=== PATIENT | male | born 1990 | race Caucasian/White ===

== ENCOUNTER 2018-01-22 20:03 | Inpatient (IN) | payer OTHER ==
[~2018-01-22] VITALS: Ht 167.6 cm; Wt 89.4 kg
[2018-01-22] MEDS ORDERED: ONDANSETRON INJ 2 MG/ML 2 ML VIAL IV STA (20:30)
[2018-01-22] MEDS ORDERED: HYDROmorphone INJ 1 MG/ML SYR IV STA (20:30)
[2018-01-22] MEDS ORDERED: KETOROLAC TROMETHAMINE 30 MG/ML VIAL IV STA (20:30)
[2018-01-22] MEDS ORDERED: AMPICILLIN/SULBACTAM SOD INJ 3,000 MG in SODIUM CHLORIDE 0.9% 100ML 100 ML IV ONE (20:30)
[2018-01-22] MEDS ORDERED: IBUP-103 PO (20:36)
[2018-01-22] MEDS ORDERED: ACET-1256 PO (20:36)
[2018-01-22] MEDS ORDERED: OPTIRAY 320 IV PRN (20:45)
[2018-01-22] MEDS ORDERED: SODIUM CHLORIDE 0.9% 1000ML 1,000 ML IV STA (22:26)
--- NOTE | 2018-01-22 22:28 | EMERGENCY ROOM VISIT NOTE ---
History Report prepared by Brett: Katie Douglas Under the Supervision of: Dr. Cortez Nava M.D. First contact with patient: 20:20 Chief Complaint: FACIAL PAIN/INJURY Stated Complaint: SWOLLEN FACE History of Present Illness The patient is a 27 year old male who presents to the Emergency Room with complaints of worsening facial pain starting two days ago. The patient states that he passed out while on the toilet, fell forward, and hit his face into a garbage can. He states that when he woke up yesterday morning, the scratch on his face was still bleeding. He states that he then super glued it himself. He states that he came to the ED because his face is now swollen. He reports that the cut has been oozing. He states that the pain is a 7/10 in severity. He notes that he has a headache. He reports taking Advil here and there with no relief. The patient notes that he is a smoker and denies being a diabetic. Source of History: patient Onset: 2 days ago Position: other (face) Symptom Intensity: 7/10 Quality: other (swollen) Timing: worsening Associated Symptoms: + headache Review of Systems See HPI for pertinent positives & negatives. A total of 10 systems reviewed and were otherwise negative. Past Medical & Surgical Medical Problems: (1) Facial cellulitis (2) No Known Active Medical Problems Family History Patient reports no known family medical history. Social History Smoking Status: Current Every Day Smoker Marital Status: in relationship Housing Status: lives with significant other Occupation Status: employed Current/Historical Medications Scheduled PRN Acetaminophen (Tylenol), 1,000-1,500 MG PO DIRECTED PRN for Pain Ibuprofen Tab (Advil), 600-800 MG PO Q4H PRN for Pain Allergies Coded Allergies: No Known Allergies (Unverified , 01/22/18) Physical Exam Vital Signs Date Time Temp Pulse Resp B/P (MAP) Pulse Ox O2 Delivery O2 Flow Rate FiO2 01/23/18 01:41 95 20 119/69 96 Room Air 01/23/18 00:00 98 16 120/65 95 Room Air 01/22/18 23:13 37.6 108 20 111/57 92 Room Air 01/22/18 22:00 105 20 116/76 98 Room Air 01/22/18 20:16 37.0 125 20 151/89 98 Room Air Physical Exam GENERAL: Patient is a healthy-appearing well-nourished HEAD: Normocephalic, left side of his face is grossly swollen. EYES: Ocular movements intact pupils equal and react to light OROPHARYNX mucous membranes are moist no exudates present no erythema or edema present NECK: Supple no nuchal rigidity CHEST: Good equal expansion LUNGS: Clear and equal to auscultation CARDIAC: Normal S1 and S2 ABDOMEN: Soft nontender no guarding BACK: No CVA tenderness EXTREMITIES: No pain upon palpation normal muscle strength in all groups no clubbing cyanosis or edema NEURO: Patient is following commands and answering questions appropriately. Alert and oriented x3 Cranial Nerves 2-12 grossly intact Medical Decision & Procedures ER Provider Diagnostic Interpretation: Radiology results as stated below per my review and radiologist interpretation: CHEST ONE VIEW PORTABLE CLINICAL HISTORY: Shortness of breath. COMPARISON STUDY: No previous studies for comparison. FINDINGS: Lung volumes are normal. No pneumothorax or pleural effusion is identified. There is no consolidation. Pulmonary vascularity is normal. Cardiomediastinal silhouette is unremarkable. IMPRESSION: No acute cardiopulmonary findings. Electronically signed by: Jamari Randhawa M.D. 01/22/2018 11:16 PM Dictated Date/Time: 01/22/2018 11:[address] NECK: Enlargement, inflammation, edema in the left parotid gland with severe surrounding fluid and subcutaneous edema involving the left maxillary, zygomatic , and mandibular and left neck soft tissues. Findings are compatible with left parotitis significant surrounding inflammatory change. No discrete abscess identified. Fluid tracks inferiorly from the parotid gland along the left neck. Thickening of the left platysma. Patchy groundglass opacities in densities in the visualized upper lobes are concerning for an infectious/inflammatory process. Enlarged left greater than right submandibular, cervical, and submental lymph nodes. Mucosal thickening in the left sphenoid sinus. Mild mucosal thickening in the ethmoid air cells. Mild mucosal thickening in the maxillary sinuses. Radiologist: Ciara Vazquez MD Study ready at 23:20 and inital results transmitted at 23:40. Laboratory Results Test 01/22/18 22:20 01/22/18 22:24 Immature Granulocyte % (Auto) 0.8 % White Blood Count 18.43 K/uL (4.8-10.8) Red Blood Count 4.33 M/uL (4.7-6.1) Hemoglobin 13.4 g/dL (14.0-18.0) Hematocrit 36.6 % (42-52) Mean Corpuscular Volume 84.5 fL (80-100) Mean Corpuscular Hemoglobin 30.9 pg (25-34) Mean Corpuscular Hemoglobin Concent 36.6 g/dl (32-36) Platelet Count 151 K/uL (130-400) Mean Platelet Volume 8.7 fL (7.4-10.4) Neutrophils (%) (Auto) 85.0 % Lymphocytes (%) (Auto) 6.7 % Monocytes (%) (Auto) 7.4 % Eosinophils (%) (Auto) 0.0 % Basophils (%) (Auto) 0.1 % Neutrophils # (Auto) 15.67 K/uL (1.4-6.5) Lymphocytes # (Auto) 1.24 K/uL (1.2-3.4) Monocytes # (Auto) 1.37 K/uL (0.11-0.59) Eosinophils # (Auto) 0.00 K/uL (0-0.5) Basophils # (Auto) 0.01 K/uL (0-0.2) Immature Granulocyte # (Auto) 0.14 K/uL (0.00-0.02) Total Creatine Kinase 97 U/L (39-308) Bedside Hemoglobin 12.9 g/dl (14.0-18.0) Bedside Hematocrit 38 % (42-52) Bedside Sodium 129 mEq/L (135-144) Bedside Potassium 3.8 mEq/L (3.3-5.0) Bedside Chloride 92 mEq/L (101-112) Bedside Total CO2 23 mEq/l (24-31) Bedside Blood Urea Nitrogen 6 mg/dl (7-18) Bedside Creatinine 0.7 mg/dl (0.6-1.3) Bedside Glucose (other) 126 mg/dl (70-99) Bedside Ionized Calcium (Loki) 1.09 mmol/l (1.12-1.32) Labs reviewed by ED physician. Medications Administered Medications (Trade) Dose Ordered Sig/Ciara Route Start Time Stop Time Status Last Admin Dose Admin Ketorolac Tromethamine (Toradol Inj) 30 mg NOW STAT IV 01/22/18 20:30 01/22/18 20:34 DC 01/22/18 20:30 30 MG Ondansetron HCl (Zofran Inj) 4 mg NOW STAT IV 01/22/18 20:30 01/22/18 20:34 DC 01/22/18 20:30 4 MG Hydromorphone HCl (Dilaudid Inj) 1 mg NOW STAT IV 01/22/18 20:30 01/22/18 20:34 DC 01/22/18 20:30 1 MG Ampicillin Sodium/ Sulbactam Sodium 3000 mg/Sodium Chloride 108 ml @ 200 mls/hr ONE ONCE IV 01/22/18 20:30 01/22/18 21:02 DC 01/22/18 20:30 200 MLS/HR Sodium Chloride 1,000 ml @ 999 mls/hr Q1H1M STAT IV 01/22/18 22:26 01/22/18 23:26 DC 01/22/18 22:26 999 MLS/HR Vancomycin HCl (Vancomycin 1gm/ 270ml Nss) 1 gm NOW STAT IV 01/23/18 00:29 01/23/18 00:30 DC 01/23/18 00:56 1 GM Procedure Central Venous Catheter Indication: Access Catheter type: Arrow triple lumen Location: Right Femoral Verbal consent was obtained after the risks and benefits were explained, including but not limited to pneumothorax, hemothorax, vessel injury, bleeding, scarring, infection, pain, and bone/joint/nerve damage. At this time, the risks of the procedure are less than the risks of NOT performing the procedure. A time out was taken and the correct patient and site identified. The patient was placed in the supine position and the skin was prepped in the standard fashion with chlorhexidine and full sterile drapes applied. The proper landmarks were identified with ultrasound, anesthetized with 1% lidocaine without epinephrine, and the needle was inserted through the skin in the standard fashion. The needle was carefully advanced into blood vessel lumen under ultrasound guidance. The guidewire was placed uneventfully. The vessel is dilated and the catheter was placed. It was sutured into position. There was good blood return from all ports. The patient tolerated the procedure well and there were no complications. Post procedure x-ray was normal. ED Course 2021: Past medical records reviewed. The patient was evaluated in room B11B. A complete history and physical examination was performed. 2029: Ordered Ampicillin Sodium/ Sulbactam Sodium 3000 mg/Sodium Chloride 108 ml @ 200 mls/hr IV, Dilaudid Inj 1 mg IV, Zofran Inj 4 mg IV, Toradol Inj 30 mg IV. 2213: I reevaluated the patient and he admitted that he is an addict. He used methamphetamines and heroine a few days ago. He denies injecting into his face and states that he does not have pain when he moves his eyes. At this time I also placed a central line. Please see my procedure note. 2226: Ordered NSS 1000 ml @ 999 mls/hr UV. 0029: Ordered Vancomycin HCl 1 gm IV. 0050: I discussed the patient's case with Dr. Dickerson, he has agreed to evaluate the patient for further management and care. 0054: I reevaluated the patient and updated him and his family on his test results. Medical Decision Differential diagnosis: Etiologies such as cellulitis, abscess, MRSA infection, DVT, necrotizing fasciitis, dermatitis, drug eruption, as well as others were entertained. This is a 27-year-old male IV drug user who presents emergency Department with a large amount of facial cellulitis. Patient tried to glue a laceration to his face several days ago. Nursing staff was unable to obtain an IV and for this reason a central line was placed as above. The patient was started on antibiotics and he was sent for CAT scan of the face. This shows no evidence of abscess. Based on this fact the did discuss the case with the hospitalist service who agreed to admit the patient. Patient and family were in agreement with the treatment plan. The patient was given normal saline bolus 30 mL's per kilogram of fluid in addition did receive Unasyn as well as vancomycin. Medication Reconcilliation Current Medication List: was personally reviewed by me Blood Pressure Screening Patient's blood pressure: Normal blood pressure Blood pressure disposition: Did not require urgent referral Consults Time Called: 004 Consulting Physician: Dr. Dickerson Returned Call: 0050 I discussed the patient's case with Dr. Dickerson, he has agreed to evaluate the patient for further management and care. Impression Primary Impression: Facial cellulitis Critical Care I have personally spent greater than 90 minutes of critical care time in the direct management of this patient. This includes bedside care, interpretation of diagnostic studies, and testing, discussion with consultants, patient, and family members, and other required patient management activities. This 90 minutes is in excess of all separately billable procedures. Scribe Attestation The scribe's documentation has been prepared under my direction and personally reviewed by me in its entirety. I confirm that the note above accurately reflects all work, treatment, procedures, and medical decision making performed by me. Departure Information Dispostion Being Evaluated By Hospitalist Referrals No Doctor, Assigned (PCP) Patient Instructions [facility]
[2018-01-22 22:34] LABS: BASO % 0.1 %; BASO ABS # 0.01 K/uL (0-0.2); HEMATOCRIT 36.6 % (42-52); HEMOGLOBIN 13.4 g/dL (14.0-18.0); IG# 0.14 K/uL (0.00-0.02); LYMPH % 6.7 %; LYMPH ABS # 1.24 K/uL (1.2-3.4); MEAN CELL VOLUME 84.5 fL (80-100); MEAN CORPUSCULAR HEMOGLOBIN 30.9 pg (25-34); MEAN CORPUSCULAR HGB CONC 36.6 g/dl (32-36); MEAN PLATELET VOLUME 8.7 fL (7.4-10.4); MONO % 7.4 %; MONO ABS # 1.37 K/uL (0.11-0.59); NEUT ABS # 15.67 K/uL (1.4-6.5); PLATELET COUNT 151 K/uL (130-400); RED CELL DISTRIBUTION WIDTH CV 13.2 % (11.5-14.5); RED CELL DISTRIBUTION WIDTH SD 40.7 fL (36.4-46.3); WHITE BLOOD COUNT 18.43 K/uL (4.8-10.8)
[2018-01-22 22:38] LABS: ISTAT CREATININE 0.7 mg/dl (0.6-1.3); ISTAT IONIZED CALCIUM 1.09 mmol/l (1.12-1.32); ISTAT POTASSIUM 3.8 mEq/L (3.3-5.0)
[2018-01-22 22:50] LABS: CALCIUM 8.3 mg/dl (8.5-10.1); CREATININE 0.88 mg/dl (0.60-1.40); POTASSIUM 3.7 mmol/L (3.5-5.1)
--- NOTE | 2018-01-22 23:17 | DIAGNOSTIC IMAGING REPORT ---
CHEST ONE VIEW PORTABLE CLINICAL HISTORY: Shortness of breath. COMPARISON STUDY: No previous studies for comparison. FINDINGS: Lung volumes are normal. No pneumothorax or pleural effusion is identified. There is no consolidation. Pulmonary vascularity is normal. Cardiomediastinal silhouette is unremarkable. IMPRESSION: No acute cardiopulmonary findings. Electronically signed by: Jamari Randhawa M.D. 01/22/2018 11:16 PM Dictated Date/Time: 01/22/2018 11:15 PM
[2018-01-23] MEDS ORDERED: VANCOMYCIN 1GM/270ML NSS IV STA (00:29)
--- NOTE | 2018-01-23 02:12 | History and Physical ---
History & Physical Date & Time of Service: Jan 23, 2018 at 02:12 Chief Complaint: Swollen Face Primary Care Physician: Goyo Reyes D.O. History of Present Illness Source: patient, family Patient is a 27 yo male who presented to the ER today for complaints of left sided facial swelling, pain, erythema, and drainage that have been worsening over the course of the day. The patient states he fell asleep while sitting up on the toilet and fell forward and hit his face on a trash can on Friday. He noticed an open wound and proceeded to use superglue to close the wound himself so that he would be permitted to work. He woke up morning with the above symptoms. His girlfriend then brought the patient to the hospital for further evaluation. The patient does report a history of IV drug abuse and reports last using heroin a couple of days ago. The patient reports associated pain, erythema, chills, rigors, and difficulty eating/drinking or speaking. He reports left sided jaw, ear, and neck pain as well. No prior history of facial cellulitis. No additional wounds noted. Past Medical/Surgical History PMHx: History of heroin abuse Hepatitis C Family History Diabetes mellitus GRANDMOTHER FH: breast cancer GRANDMOTHER Social History Smoking Status: Current Every Day Smoker (>1 ppd) Smokeless Tobacco Use: No Alcohol Use: none Drug Use: heroin (last time was a couple of days ago) Marital Status: in relationship Occupational Status: employed Allergies Coded Allergies: No Known Allergies (Unverified , 01/22/18) Home Medications Scheduled PRN Acetaminophen (Tylenol), 1,000-1,500 MG PO DIRECTED PRN for Pain Ibuprofen Tab (Advil), 600-800 MG PO Q4H PRN for Pain Review of Systems Constitutional: + chills, No fever, No sweats, No weakness Eyes: + problem reported (left eyelid swelling), No worsening of vision, No redness, No diplopia ENT: + trouble swallowing, + problem reported (facial swelling, difficulty opening mouth, eating, or talking), No sore throat Respiratory: No cough, No sputum, No wheezing, No shortness of breath Cardiovascular: No chest pain, No edema, No palpitations Abdomen: No pain, No nausea, No vomiting, No diarrhea, No constipation Musculoskeletal: No joint pain, No muscle pain, No swelling Genitourinary - Male: No hematuria, No dysuria, No urinary frequency, No urinary urgency Neurologic: No paralysis, No weakness, No numbness/tingling, No vertigo Psychiatric: + substance abuse, No depression symptoms, No anxiety, No insomnia Endocrine: No fatigue, No excessive thirst, No excessive urination Hematologic / Lymphatic: No abnormal bleeding/bruising, No clotting problems, No night sweats Integumentary: No rash, No itch, No new/changing skin lesions Physical Exam Vital Signs Date Time Temp Pulse Resp B/P (MAP) Pulse Ox O2 Delivery O2 Flow Rate FiO2 01/23/18 01:41 95 20 119/69 96 Room Air 01/23/18 00:00 98 16 120/65 95 Room Air 01/22/18 23:13 37.6 108 20 111/57 92 Room Air 01/22/18 22:00 105 20 116/76 98 Room Air 01/22/18 20:16 37.0 125 20 151/89 98 Room Air General Appearance: WD/WN, no apparent distress, + mild distress Head: normocephalic, atraumatic Eyes: PERRL, EOMI, sclerae normal (conjunctivae clear) ENT: hearing grossly normal, + trismus, + pertinent finding (left facial cellulitis, with edema and erythema to the neck and ear and left eyelid) Neck: supple, no JVD, no carotid bruits, trachea midline, + pertinent finding ( tenderness on left neck) Respiratory/Chest: chest non-tender, lungs clear, normal breath sounds, no respiratory distress, no accessory muscle use Cardiovascular: regular rate, rhythm, no edema, no gallop, no JVD, no murmur Abdomen/GI: normal bowel sounds, non tender, soft, no organomegaly Back: no CVA tenderness Extremities/Musculoskelatal: normal inspection, no calf tenderness, no pedal edema Neurologic/Psych: no motor/sensory deficits, alert, normal mood/affect, oriented x 3 Skin: normal color, warm/dry, no rash Diagnostics Laboratory Results Results Past 24 Hours Test 01/22/18 22:20 01/22/18 22:24 01/23/18 02:08 Range/Units White Blood Count 18.43 4.8-10.8 K/uL Red Blood Count 4.33 4.7-6.1 M/uL Hemoglobin 13.4 14.0-18.0 g/dL Hematocrit 36.6 42-52 % Mean Corpuscular Volume 84.5 80-100 fL Mean Corpuscular Hemoglobin 30.9 25-34 pg Mean Corpuscular Hemoglobin Concent 36.6 32-36 g/dl Platelet Count 151 130-400 K/uL Mean Platelet Volume 8.7 7.4-10.4 fL Neutrophils (%) (Auto) 85.0 % Lymphocytes (%) (Auto) 6.7 % Monocytes (%) (Auto) 7.4 % Eosinophils (%) (Auto) 0.0 % Basophils (%) (Auto) 0.1 % Neutrophils # (Auto) 15.67 1.4-6.5 K/uL Lymphocytes # (Auto) 1.24 1.2-3.4 K/uL Monocytes # (Auto) 1.37 0.11-0.59 K/uL Eosinophils # (Auto) 0.00 0-0.5 K/uL Basophils # (Auto) 0.01 0-0.2 K/uL RDW Standard Deviation 40.7 36.4-46.3 fL RDW Coefficient of Variation 13.2 11.5-14.5 % Immature Granulocyte % (Auto) 0.8 % Immature Granulocyte # (Auto) 0.14 0.00-0.02 K/uL Sodium Level 127 136-145 mmol/L Potassium Level 3.7 3.5-5.1 mmol/L Chloride Level 95 98-107 mmol/L Carbon Dioxide Level 26 21-32 mmol/L Anion Gap 5.0 19.0 16-25 mmol/L Blood Urea Nitrogen 7 7-18 mg/dl Creatinine 0.88 0.60-1.40 mg/dl Est Creatinine Clear Calc Drug Dose 130.8 ml/min Estimated GFR () 135.5 Estimated GFR (Non- 116.9 BUN/Creatinine Ratio 8.1 10-20 Random Glucose 118 70-99 mg/dl Calcium Level 8.3 8.5-10.1 mg/dl Total Creatine Kinase 97 39-308 U/L Bedside Hemoglobin 12.9 14.0-18.0 g/dl Bedside Hematocrit 38 42-52 % Bedside Sodium 129 135-144 mEq/L Bedside Potassium 3.8 3.3-5.0 mEq/L Bedside Chloride 92 101-112 mEq/L Bedside Total CO2 23 24-31 mEq/l Bedside Blood Urea Nitrogen 6 7-18 mg/dl Bedside Creatinine 0.7 0.6-1.3 mg/dl Bedside Glucose (other) 126 70-99 mg/dl Bedside Ionized Calcium (Loki) 1.09 1.12-1.32 mmol/l Microbiology Results 01/22/18 Blood Culture, Received Pending 01/22/18 Gram Stain, Received Pending 01/22/18 Wound Culture, Received Pending Impression Assessment and Plan FACIAL CELLULITIS: -no abscess per imaging -some purulent drainage noted from the wound on his left cheek where the cut/ injury first started -wound and blood cultures ordered -leukocytosis and tachycardia noted -initially given unasyn and vanco in the ER; will continue vanco and zosyn for now -obtain MRSA screen QUESTIONABLE HX OF HEPATITIS C: -obtain hep C screen and RNA RECENT AND PAST HX OF HEROIN ABUSE: -patient admitted to using 2-3 days ago -has extremely poor venous access and required a central line to be placed in the ER as IV and blood draws could not be done -declined resources or info regarding rehab TOBACCO DEPENDANCE: -can provide nicotine patch while hospitalized -smoking cessation info Level of Care Med/Surg Resuscitation Status FULL RESUSCITATION VTE Prophylaxis VTE Risk Assessment Done? Y/N: Yes Risk Level: Moderate Given or contraindicated: Enoxaparin (Lovenox)SQ
[2018-01-23] MEDS ORDERED: POLYETHYLENE (MIRALAX) 17 GM PACK PO PRN (02:15)
[2018-01-23] MEDS ORDERED: ONDANSETRON INJ 2 MG/ML 2 ML VIAL IV PRN (02:15)
[2018-01-23] MEDS ORDERED: VANCOMYCIN CONSULT ACTIVE PRN ×2 (02:15→03:36)
[2018-01-23] MEDS ORDERED: VANCOMYCIN INJ 1,250 MG in SODIUM CHLORIDE 0.9% 250ML 250 ML IV STA (03:38)
[2018-01-23 03:45] VITALS: BP 99/65; PULSE 96; TEMP 37.4; O2SAT 94; Ht 167.6 cm; Wt 89.4 kg
[2018-01-23] MEDS ORDERED: PIPERACILL/TAZOBAC CONSULT ACTIVE PRN (03:45)
[2018-01-23] MEDS ORDERED: PIPERACILL/TAZOBAC IV 3.375 GM in DEXTROSE 5% 100ML IV ONE (03:45)
[2018-01-23] MEDS ORDERED: IV FLUIDS COMPLETED PRN (04:15)
[2018-01-23] MEDS ORDERED: PIPERACILL/TAZOBAC IV 4.5 GM in DEXTROSE 5% 100ML 100 ML IV SCH (06:00)
[2018-01-23] MEDS: KETOROLAC TROMETHAMINE 15 MG/ML VIAL IV PRN ×2 (06:06→12:03)
[2018-01-23 07:22] VITALS: BP 128/66; PULSE 96; TEMP 37.6; O2SAT 94
--- NOTE | 2018-01-23 07:43 | DIAGNOSTIC IMAGING REPORT ---
CT NECK WITH INTRAVENOUS CONTRAST HISTORY: Left facial swelling. Pt c/o cellulitis TECHNIQUE: Multiaxial CT images of the neck were performed following the use of intravenous contrast. COMPARISON STUDY: None. FINDINGS: The visualized brain parenchyma and orbits are unremarkable. Left facial subcutaneous edema and skin thickening. There is also deep soft tissue edema within the left side of the neck. Prevertebral soft tissues and the epiglottis are normal in thickness. Left submandibular and mild left cervical lymphadenopathy. Dominant left submandibular lymph node measures 2.1 x 1.2 cm. The left parotid gland is edematous and demonstrates increased enhancement and enlargement in comparison to the right. No loculated fluid collections to suggest an abscess. No masses identified within the neck. The major mucosal airway surfaces are intact. The trachea is midline and is patent. Multifocal groundglass and nodular airspace opacities are seen within the upper lobes. No pneumothorax. No fractures within the visualized osseous structures. Small fluid level within the left sphenoid sinus and mild mucosal thickening within the ethmoid air cells and maxillary sinuses. The mastoid air cells are clear. The carotid and vertebral arteries enhance normally. The internal jugular veins appear a new. Thickening of the left platysma. Enlarged submental lymph nodes. IMPRESSION: 1. Enlarged, edematous, and hyperenhancing left parotid gland consistent with a parotitis. 2. There is extensive left facial, left submandibular, and left neck subcutaneous and deep soft tissue edema with associated skin thickening. This may represent reactive change or a cellulitis. No loculated fluid collections to suggest an abscess. 3. Associated left submandibular and left cervical lymphadenopathy. 4. Patchy airspace opacities within the upper lobes consistent with a pneumonia. Electronically signed by: Arnaldo Daniels M.D. 01/23/2018 7:42 AM Dictated Date/Time: 01/23/2018 7:35 AM
[2018-01-23] MEDS: PIPERACILL/TAZOBAC IV 3.375 GM in DEXTROSE 5% 100ML IV SCH ×2 (08:02→16:21)
[2018-01-23 08:09] LABS: HEMATOCRIT 34.7 % (42-52); HEMOGLOBIN 12.5 g/dL (14.0-18.0); MEAN CELL VOLUME 84.6 fL (80-100); MEAN CORPUSCULAR HEMOGLOBIN 30.5 pg (25-34); MEAN PLATELET VOLUME 8.6 fL (7.4-10.4); PLATELET COUNT 145 K/uL (130-400); RED CELL DISTRIBUTION WIDTH CV 13.6 % (11.5-14.5); RED CELL DISTRIBUTION WIDTH SD 41.6 fL (36.4-46.3); WHITE BLOOD COUNT 16.71 K/uL (4.8-10.8)
[2018-01-23] MEDS: ACETAMINOPHEN 325 MG TAB PO PRN ×2 (08:09→19:40)
[2018-01-23 08:43] LABS: CALCIUM 8.2 mg/dl (8.5-10.1); CREATININE 0.94 mg/dl (0.60-1.40); POTASSIUM 3.6 mmol/L (3.5-5.1)
[2018-01-23 10:56] LABS: PTT PATIENT 31.4 SECONDS (21.0-31.0)
[2018-01-23] MEDS: VANCOMYCIN INJ 1,500 MG in SODIUM CHLORIDE 0.9% 500ML 500 ML IV SCH ×2 (12:04→20:28)
--- NOTE | 2018-01-23 12:06 | Pharmacy Progress Note ---
Pharmacy Abx Dose Short Note Date of Service Jan 23, 2018. Assessment & Plan Assessment * 27 year old male receiving IV Vancomycin/Zosyn for treatment of facial cellulitis (no evidence of abscess). * Clindamycin IV was added today as an additional empiric abx. * Day #1 of antimicrobial therapy. * Patient has a history of IVDA with past and recent heroin abuse. Plan Vancomycin * Vancomycin 2250mg IV (25mg/kg) x1, then * Vancomycin 1500 mg (16.8mg/kg) IV every 8 hours * Goal trough level for cellulitis: ~15 mcg/mL * Trough level ordered for: 01/24 prior to the 4th maintenance dose Zosyn * Zosyn 3.375gm IV x1 dose over 30 min, then * Zosyn 3.375gm IV q8h, extended 4-hr infusion Clindamycin 600mg IV q8h, x48hr empiric abx Pharmacy will continue to follow and will adjust dose/frequency as necessary. Thank you.
[2018-01-23] MEDS: ENOXAPARIN 40 MG/0.4 ML SYR SQ SCH (12:15)
[2018-01-23] MEDS: CLINDAMYCIN IV 600 MG in DEXTROSE 5% 50ML 50 ML IV SCH ×2 (12:37→20:28)
[2018-01-23 16:18] VITALS: BP 105/69; PULSE 91; TEMP 37.1; O2SAT 98
[2018-01-23] MEDS ORDERED: KETOROLAC TROMETHAMINE 15 MG/ML VIAL IV PRN (16:45)
--- NOTE | 2018-01-23 17:53 | CONSULTATION REPORT ---
DATE OF CONSULTATION: 01/23/2018 REASON FOR CONSULTATION: Left facial cellulitis. HISTORY OF PRESENT ILLNESS: Conrado is a 27-year-old man with a history of recent IVDA who fell striking his left cheek several days ago and then presented to the Emergency Room last night, was admitted to the hospital with what was diagnosed as a left facial cellulitis, based on clinical presentation and a CT scan that showed cellulitic changes but no fluid collections. He reports that the swelling has been advancing quite rapidly recently and that he has been feeling poorly and had fevers. I will refer you to the admission history and physical on the details of his past medical history, medications, allergies, social and family history. PHYSICAL EXAMINATION: VITAL SIGNS: Currently, his temperature is 37.1, but he has been febrile earlier in the day. His vital signs are unremarkable. GENERAL: He is awake, alert, oriented to person, place and time. HEENT: There is marked left facial swelling with erythema. There is a 1.5 cm laceration in the anterior left cheek and I can express purulent drainage from that wound. There is erythema that extends over his neck and on to the left shoulder skin and we will osito the extent of that now. His airway is widely patent. There are no signs of any collection in his deep fascial spaces of the neck. I do not see any obvious dental source for this infection. IMAGING DATA: A CT scan on admission shows extensive swelling and the radiologist raised the possibility of a parotitis, although this does not seem to fit clinically. LABORATORY DATA: His white count on admission was 18.4,000 but currently 16.7; the remainder of his labs were relatively unremarkable. His current antibiotic coverage is vancomycin and Zosyn along with clindamycin IV. IMPRESSION AND PLAN: Left facial cellulitis. I did take a new culture today, a wound culture that was taken earlier is showing a group A beta strep. The culture I took today was from deeper inside the wound and hopefully will give us some additional information. I agree with his current antibiotic coverage. We can tailor this as culture data becomes available. I will follow him closely and consider incision and drainage in the OR, if this progresses. However, there is some active drainage from the laceration site currently and that combined with the antibiotic coverage, I would expect to result in improvement of this infection without need for surgical manipulation. JEANE
[2018-01-23] MEDS: MUPIROCIN 2% OINT 22 GM TUBE EXT SCH (18:17)
--- NOTE | 2018-01-23 18:26 | Progress Note ---
Internal Med Progress Note Date of Service: Jan 23, 2018. Provider Documentation: SUBJECTIVE: Patient awake and alert and verbal. Has requested pain medications for facial pain OBJECTIVE: General Appearance: no acute distress Head: normocephalic Eyes: EOMI ENT: hearing grossly normal, left facial cellulitis, with edema and erythema to the neck and ear and left eyelid Neck: supple, no JVD, no carotid bruits, trachea midline, tenderness on left neck Respiratory/Chest: chest non-tender, lungs clear, normal breath sounds, no respiratory distress, no accessory muscle use Cardiovascular: regular rate, rhythm, no edema, no gallop, no JVD, no murmur Abdomen/GI: normal bowel sounds, non tender, soft, no organomegaly Back: no CVA tenderness Extremities/Musculoskelatal: normal inspection, no calf tenderness, no pedal edema; right femoral area with central line Neurologic/Psych: alert and oriented x 3 ASSESSMENT & PLAN: FACIAL CELLULITIS: -no abscess per imaging -some purulent drainage noted from the wound on his left cheek where the cut/ injury first started -initially given unasyn and vanco in the ER -now on vancomycin and zosyn and clindamycin -MRSA surveillance screen negative -initial wound culture as GROUP A BETA STREP -patient seen by oral-facial surgeon on 01/23/18 and no need of surgery at this time, a deeper wound culture was obtained as per the note RECENT AND PAST HX OF HEROIN ABUSE: -patient admitted to using 2-3 days ago -has extremely poor venous access and required a central line to be placed in the ER as IV and blood draws could not be done -Monitor for opioid withdrawal QUESTIONABLE HX OF HEPATITIS C: -full hep C panel pending results TOBACCO DEPENDANCE: -Nicotine patch ordered -smoking cessation info Vital Signs: Date Time Temp Pulse Resp B/P (MAP) Pulse Ox O2 Delivery O2 Flow Rate FiO2 01/23/18 16:18 37.1 91 20 105/69 (81) 98 Room Air 01/23/18 16:11 Room Air 01/23/18 08:20 Room Air 01/23/18 07:22 37.6 96 20 128/66 (86) 94 Room Air 01/23/18 03:45 37.4 96 16 99/65 94 Room Air 01/23/18 03:08 97 18 121/67 97 01/23/18 02:56 37.2 97 18 121/67 97 Room Air 01/23/18 01:41 95 20 119/69 96 Room Air 01/23/18 00:00 98 16 120/65 95 Room Air 01/22/18 23:13 37.6 108 20 111/57 92 Room Air 01/22/18 22:00 105 20 116/76 98 Room Air 01/22/18 20:16 37.0 125 20 151/89 98 Room Air Lab Results: Results Past 24 Hours Test 01/22/18 22:20 01/22/18 22:24 01/23/18 05:30 01/23/18 07:47 Range/Units White Blood Count 18.43 16.71 4.8-10.8 K/uL Red Blood Count 4.33 4.10 4.7-6.1 M/uL Hemoglobin 13.4 12.5 14.0-18.0 g/dL Hematocrit 36.6 34.7 42-52 % Mean Corpuscular Volume 84.5 84.6 80-100 fL Mean Corpuscular Hemoglobin 30.9 30.5 25-34 pg Mean Corpuscular Hemoglobin Concent 36.6 36.0 32-36 g/dl Platelet Count 151 145 130-400 K/uL Mean Platelet Volume 8.7 8.6 7.4-10.4 fL Neutrophils (%) (Auto) 85.0 % Lymphocytes (%) (Auto) 6.7 % Monocytes (%) (Auto) 7.4 % Eosinophils (%) (Auto) 0.0 % Basophils (%) (Auto) 0.1 % Neutrophils # (Auto) 15.67 1.4-6.5 K/uL Lymphocytes # (Auto) 1.24 1.2-3.4 K/uL Monocytes # (Auto) 1.37 0.11-0.59 K/uL Eosinophils # (Auto) 0.00 0-0.5 K/uL Basophils # (Auto) 0.01 0-0.2 K/uL RDW Standard Deviation 40.7 41.6 36.4-46.3 fL RDW Coefficient of Variation 13.2 13.6 11.5-14.5 % Immature Granulocyte % (Auto) 0.8 % Immature Granulocyte # (Auto) 0.14 0.00-0.02 K/uL Sodium Level 127 135 136-145 mmol/L Potassium Level 3.7 3.6 3.5-5.1 mmol/L Chloride Level 95 102 98-107 mmol/L Carbon Dioxide Level 26 26 21-32 mmol/L Anion Gap 5.0 19.0 7.0 3-11 mmol/L Blood Urea Nitrogen 7 7 7-18 mg/dl Creatinine 0.88 0.94 0.60-1.40 mg/dl Est Creatinine Clear Calc Drug Dose 130.8 122.5 ml/min Estimated GFR () 135.5 127.4 Estimated GFR (Non- 116.9 109.9 BUN/Creatinine Ratio 8.1 7.7 10-20 Random Glucose 118 103 70-99 mg/dl Calcium Level 8.3 8.2 8.5-10.1 mg/dl Total Creatine Kinase 97 39-308 U/L Bedside Hemoglobin 12.9 14.0-18.0 g/dl Bedside Hematocrit 38 42-52 % Bedside Sodium 129 135-144 mEq/L Bedside Potassium 3.8 3.3-5.0 mEq/L Bedside Chloride 92 101-112 mEq/L Bedside Total CO2 23 24-31 mEq/l Bedside Blood Urea Nitrogen 6 7-18 mg/dl Bedside Creatinine 0.7 0.6-1.3 mg/dl Bedside Glucose (other) 126 70-99 mg/dl Bedside Ionized Calcium ([place]oki) 1.09 1.12-1.32 mmol/l Urine Color YELLOW Urine Appearance CLEAR CLEAR Urine pH 6.5 4.5-7.5 Urine Specific [place] 1.010 1.000-1.030 Urine Protein NEG NEG Urine Glucose (UA) NEG NEG Urine Ketones NEG NEG Urine Occult Blood NEG NEG Urine Nitrite NEG NEG Urine Bilirubin NEG NEG Urine Urobilinogen NEG NEG Urine Leukocyte Esterase NEG NEG Urine Opiates Screen NEG NEG Urine Methadone, Qualitative NEG NEG Urine Barbiturates NEG NEG Urine Phencyclidine (PCP) Level NEG NEG Ur Amphetamine/Methamphetamine NEG NEG MDMA (Ecstasy) Screen NEG NEG Urine Benzodiazepines Screen NEG NEG Urine Cocaine Metabolite NEG NEG Urine Marijuana (THC) NEG NEG Test 01/23/18 10:11 01/23/18 10:31 Range/Units Hepatitis C Antibody PRELIM POS NEG Prothrombin Time 10.3 9.0-12.0 SECONDS Prothromb Time International Ratio 1.0 0.9-1.1 Activated Partial Thromboplast Time 31.4 21.0-31.0 SECONDS Partial Thromboplastin Ratio 1.2 Microbiology Results 01/22/18 Blood Culture, Received Pending 01/23/18 MRSA DNA Surveillance Screen - Final, Complete Specimen Negative for MRSA by DNA Probe
[2018-01-23] MEDS ORDERED: HYDROmorphone INJ 0.5 MG/0.5 ML SYR IV PRN (18:30)
[2018-01-23] MEDS: KETOROLAC TROMETHAMINE 30 MG/ML VIAL IV. PRN (19:31)
[2018-01-24 00:28] VITALS: BP 127/68; PULSE 85; TEMP 37; O2SAT 98
[2018-01-24] MEDS: CLINDAMYCIN IV 600 MG in DEXTROSE 5% 50ML 50 ML IV SCH ×3 (03:22→20:26)
[2018-01-24] MEDS: VANCOMYCIN INJ 1,500 MG in SODIUM CHLORIDE 0.9% 500ML 500 ML IV SCH ×2 (04:28→12:09)
[2018-01-24] MEDS: MUPIROCIN 2% OINT 22 GM TUBE EXT SCH ×5 (05:00→23:38)
[2018-01-24] MEDS: ENOXAPARIN 40 MG/0.4 ML SYR SQ SCH (07:18)
[2018-01-24] MEDS: NICOTINE 7 MG/24 HR TDSY TD SCH (07:20)
[2018-01-24] MEDS: PIPERACILL/TAZOBAC IV 3.375 GM in DEXTROSE 5% 100ML IV SCH ×5 (07:20→23:38)
[2018-01-24] MEDS: KETOROLAC TROMETHAMINE 30 MG/ML VIAL IV. PRN ×2 (07:23→15:27)
[2018-01-24 07:25] VITALS: BP 110/67; PULSE 88; TEMP 37.6; O2SAT 98
--- NOTE | 2018-01-24 09:54 | Progress Note ---
Progress Note Date of Service Jan 24, 2018. Progress Note Follow up exam - he reports feeling a little bit better. Afebrile over night - temp this morning was 37.6 AM labs still pending On exam - the swelling in the upper part of the cheek and lower eye lid is improving. There is still some yellow/green drainage from the laceration site in his cheek. The erythema extending along the neck and upper shoulder has progressed minimally from last night - about 1 cm. The erythema is less pronounced today. Airway and swallowing an uneffected. Cultures are still pending. Impression - some improvement overnight on the combination of IV Zosyn, Clinda and Vanco. Recommendations - he should remain hospitalized on broad spectrum Abx until his clinical course is further improved and we have more culture data to direct his antibiotic coverage. Will need to improve his wound care. I will continue to follow closely.
[2018-01-24] MEDS ORDERED: VANCOMYCIN TROUGH ONE (11:30)
[2018-01-24 12:23] LABS: BASO % 0.1 %; BASO ABS # 0.01 K/uL (0-0.2); EOS % 0.7 %; EOS ABS # 0.12 K/uL (0-0.5); HEMATOCRIT 35.4 % (42-52); HEMOGLOBIN 12.8 g/dL (14.0-18.0); IG# 0.09 K/uL (0.00-0.02); LYMPH % 7.6 %; LYMPH ABS # 1.32 K/uL (1.2-3.4); MEAN CELL VOLUME 85.5 fL (80-100); MEAN CORPUSCULAR HEMOGLOBIN 30.9 pg (25-34); MEAN CORPUSCULAR HGB CONC 36.2 g/dl (32-36); MEAN PLATELET VOLUME 8.8 fL (7.4-10.4); MONO % 4.9 %; MONO ABS # 0.86 K/uL (0.11-0.59); NEUT % 86.2 %; NEUT ABS # 15.01 K/uL (1.4-6.5); PLATELET COUNT 202 K/uL (130-400); RED CELL DISTRIBUTION WIDTH CV 13.8 % (11.5-14.5); WHITE BLOOD COUNT 17.41 K/uL (4.8-10.8)
[2018-01-24 12:50] LABS: ALBUMIN 2.4 gm/dl (3.4-5.0); CALCIUM 8.2 mg/dl (8.5-10.1); CREATININE 1.23 mg/dl (0.60-1.40); POTASSIUM 3.6 mmol/L (3.5-5.1)
[2018-01-24 12:53] LABS: TOTAL PROTEIN 6.5 gm/dl (6.4-8.2)
--- NOTE | 2018-01-24 15:13 | Pharmacy Progress Note ---
Pharmacy Abx Dose Progress Nt Date of Service Jan 24, 2018. Pharmacy Dosing Scope The patient is currently receiving the following antimicrobial agents per Pharmacy consult: Vancomycin 1500 mg IV every 8 hours Zosyn 3.375mg IV q 8 hours He is also on Clindamycin 600mg iv q 8 hours. Objective Height (Feet): 5 Height (Inches): 6.00 Weight (Kilograms): 89.400 Vital Signs (Past 12Hrs) Vital Signs Past 12 Hours Date Time Temp Pulse Resp B/P (MAP) Pulse Ox O2 Delivery O2 Flow Rate FiO2 01/24/18 08:00 Room Air 01/24/18 07:25 37.6 88 16 110/67 (81) 98 Lab Results (24Hrs) Laboratory Tests (24 Hours) Test 01/24/18 12:08 White Blood Count 17.41 K/uL (4.8-10.8) H Red Blood Count 4.14 M/uL (4.7-6.1) L Hemoglobin 12.8 g/dL (14.0-18.0) L Hematocrit 35.4 % (42-52) L Mean Corpuscular Volume 85.5 fL (80-100) Mean Corpuscular Hemoglobin 30.9 pg (25-34) Mean Corpuscular Hemoglobin Concent 36.2 g/dl (32-36) H Platelet Count 202 K/uL (130-400) Mean Platelet Volume 8.8 fL (7.4-10.4) Neutrophils (%) (Auto) 86.2 % Lymphocytes (%) (Auto) 7.6 % Monocytes (%) (Auto) 4.9 % Eosinophils (%) (Auto) 0.7 % Basophils (%) (Auto) 0.1 % Neutrophils # (Auto) 15.01 K/uL (1.4-6.5) H Lymphocytes # (Auto) 1.32 K/uL (1.2-3.4) Monocytes # (Auto) 0.86 K/uL (0.11-0.59) H Eosinophils # (Auto) 0.12 K/uL (0-0.5) Basophils # (Auto) 0.01 K/uL (0-0.2) Micro Results Date/Time Source Procedure Growth Status 01/22/18 22:20 Blood Blood Culture - Preliminary NO GROWTH TO DATE. Resulted 01/23/18 04:15 Nasal MRSA DNA Surveillance Screen - Final Specimen Negative for MRSA by DNA Probe Complete 01/23/18 17:30 Cellulitis Face Gram Stain - Final Resulted 01/23/18 17:30 Cellulitis Face Bacterial Culture Pending Resulted 01/22/18 18:35 Drainage - Surface Face Gram Stain - Final Resulted 01/22/18 18:35 Wound Culture - Preliminary Group A Beta Strep Staphylococcus Aureus Resulted Risk Factors for Resistance * IVDA Assessment & Plan Assessment 27 year old male receiving Vancomycin and Zosyn for treatment of facial cellulitis. Day # 2 of antimicrobial therapy Blood culture: NGTD Cellulitis culture: gram positive cocci Facial Drainage culture: Group A beta strep, staph Scr increased to 1.23 today, most likely due to the combination of zosyn and vanc. Plan Vancomycin IV * Trough level of 13.4 mcg/mL is subtherapeutic. * Change to 1750 mg (20mg/kg) IV every 8 hours * Goal trough level for facial cellulitis: ~15 mcg/mL * Trough level ordered for: 01/25 @1730 Piperacillin/tazobactam * Continue 3.375 g IV extended infusion every 8 hours for CrCl greater than 20 mL/min Pharmacy will continue to follow and will adjust dose/frequency as necessary. Thank you.
[2018-01-24 16:09] VITALS: BP 131/71; PULSE 81; TEMP 37.2; O2SAT 100
--- NOTE | 2018-01-24 16:56 | Progress Note ---
Internal Med Progress Note Date of Service: Jan 24, 2018. Provider Documentation: SUBJECTIVE: Patient awake and alert and verbal. OBJECTIVE: General Appearance: no acute distress Head: normocephalic Eyes: EOMI ENT: hearing grossly normal, left facial cellulitis, with edema and erythema to the left neck and left ear and left eyelid Neck: supple, no JVD, no carotid bruits, trachea midline, tenderness on left neck Respiratory/Chest: chest non-tender, lungs clear, normal breath sounds, no respiratory distress, no accessory muscle use Cardiovascular: regular rate, rhythm, no edema, no gallop, no JVD, no murmur Abdomen/GI: normal bowel sounds, non tender, soft, no organomegaly Extremities/Musculoskelatal: normal inspection, no calf tenderness, no pedal edema; right femoral area with central line Neurologic/Psych: alert and oriented x 3 ASSESSMENT & PLAN: FACIAL CELLULITIS: -no abscess per imaging -initially given unasyn and vanco in the ER -now on vancomycin and zosyn and clindamycin -MRSA surveillance screen negative -blood culture from 01/22/18 no growth -initial 01/22/18 wound culture as GROUP A BETA STREP -patient seen by oral-facial surgeon on 01/23/18 and a deeper wound culture was obtained with wound culture pending -will de-escalate antibiotics based on clinical improvement and following the wound culture drawn on 01/23/18 -no surgical intervention for now Renal function Patient's BUN and creatinine increasing which could be from Vancomycin and Ketoralac for pain control Would keep Vancomycin as part of active medications for now since there is still possibility for MRSA, wound culture drawn on 01/23/18 Stop Ketorolac Monitor for GFR if developing TRINI Start IV fluids Pain Control Stop Ketorolac Replace as Tylenol IV 1000 mg q8hrs for pain or fever Would try to avoid narcotics given heroin abuse history Heroin use in recent past -has poor venous access and required a central line to be placed in the ER as IV and blood draws could not be done -Monitor for opioid withdrawal Hepatitis C antibody positive, other hepatitis labs pending Tobacco use -Nicotine patch, smoking cessation DVT ppx: SCD Vital Signs: Date Time Temp Pulse Resp B/P (MAP) Pulse Ox O2 Delivery O2 Flow Rate FiO2 01/24/18 16:09 37.2 81 18 131/71 (91) 100 Room Air 01/24/18 16:00 Room Air 01/24/18 08:00 Room Air 01/24/18 07:25 37.6 88 16 110/67 (81) 98 01/24/18 00:28 37.0 85 18 127/68 (87) 98 Room Air 01/24/18 00:22 Room Air Lab Results: Results Past 24 Hours Test 01/24/18 12:08 Range/Units White Blood Count 17.41 4.8-10.8 K/uL Red Blood Count 4.14 4.7-6.1 M/uL Hemoglobin 12.8 14.0-18.0 g/dL Hematocrit 35.4 42-52 % Mean Corpuscular Volume 85.5 80-100 fL Mean Corpuscular Hemoglobin 30.9 25-34 pg Mean Corpuscular Hemoglobin Concent 36.2 32-36 g/dl Platelet Count 202 130-400 K/uL Mean Platelet Volume 8.8 7.4-10.4 fL Neutrophils (%) (Auto) 86.2 % Lymphocytes (%) (Auto) 7.6 % Monocytes (%) (Auto) 4.9 % Eosinophils (%) (Auto) 0.7 % Basophils (%) (Auto) 0.1 % Neutrophils # (Auto) 15.01 1.4-6.5 K/uL Lymphocytes # (Auto) 1.32 1.2-3.4 K/uL Monocytes # (Auto) 0.86 0.11-0.59 K/uL Eosinophils # (Auto) 0.12 0-0.5 K/uL Basophils # (Auto) 0.01 0-0.2 K/uL RDW Standard Deviation 43.0 36.4-46.3 fL RDW Coefficient of Variation 13.8 11.5-14.5 % Immature Granulocyte % (Auto) 0.5 % Immature Granulocyte # (Auto) 0.09 0.00-0.02 K/uL Sodium Level 140 136-145 mmol/L Potassium Level 3.6 3.5-5.1 mmol/L Chloride Level 108 98-107 mmol/L Carbon Dioxide Level 26 21-32 mmol/L Anion Gap 5.0 3-11 mmol/L Blood Urea Nitrogen 9 7-18 mg/dl Creatinine 1.23 0.60-1.40 mg/dl Est Creatinine Clear Calc Drug Dose 93.6 ml/min Estimated GFR () 92.0 Estimated GFR (Non- 79.4 BUN/Creatinine Ratio 7.5 10-20 Random Glucose 104 70-99 mg/dl Calcium Level 8.2 8.5-10.1 mg/dl Total Bilirubin 0.5 0.2-1 mg/dl Aspartate Amino Transf (AST/SGOT) 15 15-37 U/L Alanine Aminotransferase (ALT/SGPT) 53 12-78 U/L Alkaline Phosphatase 102 45-117 U/L Total Protein 6.5 6.4-8.2 gm/dl Albumin 2.4 3.4-5.0 gm/dl Globulin 4.1 2.5-4.0 gm/dl Albumin/Globulin Ratio 0.6 0.9-2 Vancomycin Level Trough 13.4 SEE COMMENT mcg/ml Microbiology Results 01/23/18 Gram Stain - Final, Resulted 01/23/18 Bacterial Culture, Resulted Pending
[2018-01-24] MEDS ORDERED: ACETAMINOPHEN IV 100 ML IV PRN (17:00)
[2018-01-24] MEDS: SODIUM CHLORIDE 0.9% 1000ML 1,000 ML IV SCH (17:42)
[2018-01-24] MEDS: VANCOMYCIN INJ 1,750 MG in SODIUM CHLORIDE 0.9% 500ML 500 ML IV SCH (17:42)
[2018-01-24] MEDS ORDERED: NURSING VERBAL MED ORDER ONE (21:30)
[2018-01-24 22:46] VITALS: BP 113/68; PULSE 90; TEMP 37.4; O2SAT 98
[2018-01-25] MEDS: VANCOMYCIN INJ 1,750 MG in SODIUM CHLORIDE 0.9% 500ML 500 ML IV SCH (01:49)
[2018-01-25] MEDS: CLINDAMYCIN IV 600 MG in DEXTROSE 5% 50ML 50 ML IV SCH ×2 (04:08→11:46)
[2018-01-25 05:43] LABS: BASO % 0.1 %; BASO ABS # 0.01 K/uL (0-0.2); EOS % 1.2 %; EOS ABS # 0.18 K/uL (0-0.5); HEMATOCRIT 34.2 % (42-52); HEMOGLOBIN 12.1 g/dL (14.0-18.0); IG# 0.13 K/uL (0.00-0.02); LYMPH % 9.6 %; LYMPH ABS # 1.46 K/uL (1.2-3.4); MEAN CELL VOLUME 85.5 fL (80-100); MEAN CORPUSCULAR HEMOGLOBIN 30.3 pg (25-34); MEAN CORPUSCULAR HGB CONC 35.4 g/dl (32-36); MEAN PLATELET VOLUME 8.4 fL (7.4-10.4); MONO % 8.2 %; MONO ABS # 1.25 K/uL (0.11-0.59); PLATELET COUNT 225 K/uL (130-400); RED CELL DISTRIBUTION WIDTH CV 13.5 % (11.5-14.5); RED CELL DISTRIBUTION WIDTH SD 41.9 fL (36.4-46.3); WHITE BLOOD COUNT 15.23 K/uL (4.8-10.8)
[2018-01-25] MEDS: MUPIROCIN 2% OINT 22 GM TUBE EXT SCH ×4 (05:48→23:49)
[2018-01-25 06:12] LABS: ALBUMIN 2.2 gm/dl (3.4-5.0); CALCIUM 7.9 mg/dl (8.5-10.1); CREATININE 1.31 mg/dl (0.60-1.40); POTASSIUM 3.4 mmol/L (3.5-5.1)
[2018-01-25 06:15] LABS: TOTAL PROTEIN 6.1 gm/dl (6.4-8.2)
[2018-01-25 07:08] VITALS: BP 136/71; PULSE 82; TEMP 37.2; O2SAT 99
[2018-01-25] MEDS: PIPERACILL/TAZOBAC IV 3.375 GM in DEXTROSE 5% 100ML IV SCH (07:35)
[2018-01-25] MEDS: SODIUM CHLORIDE 0.9% 1000ML 1,000 ML IV SCH ×3 (07:35→23:00)
[2018-01-25] MEDS: NICOTINE 7 MG/24 HR TDSY TD SCH (07:36)
[2018-01-25] MEDS ORDERED: POTASSIUM CHLORIDE 20 MEQ TABCR PO ONE (08:00)
[2018-01-25] MEDS: AMOXICILLIN/CLAVULANATE TAB 875 MG TAB PO SCH ×2 (11:46→16:36)
--- NOTE | 2018-01-25 12:50 | Progress Note ---
Internal Med Progress Note Date of Service: Jan 25, 2018. Provider Documentation: SUBJECTIVE: Patient awake and alert and verbal. OBJECTIVE: General Appearance: no acute distress Head: normocephalic Eyes: EOMI ENT: hearing grossly normal, left facial cellulitis, with edema and erythema to the left neck and left ear and left eyelid with some resolution of the swelling in terms of depth of swelling Neck: supple, no JVD, no carotid bruits, trachea midline, tenderness on left neck Respiratory/Chest: chest non-tender, lungs clear, normal breath sounds, no respiratory distress, no accessory muscle use Cardiovascular: regular rate, rhythm, no edema, no gallop, no JVD, no murmur Abdomen/GI: normal bowel sounds, non tender, soft, no organomegaly Extremities/Musculoskelatal: normal inspection, no calf tenderness, no pedal edema; right femoral area with central line Neurologic/Psych: alert and oriented x 3 ASSESSMENT & PLAN: FACIAL CELLULITIS: -no abscess per imaging -initially given unasyn and vanco in the ER -now on vancomycin and zosyn and clindamycin -MRSA surveillance screen negative -blood culture from 01/22/18 no growth -initial 01/22/18 wound culture as GROUP A BETA STREP -patient seen by oral-facial surgeon on 01/23/18 and a deeper wound culture was obtained with wound culture as GROUP A BETA STREP -The GROUP A BETA STREP is sensitive to beta lactam and clindamycin. IV vancomycin and IV Zosyn and IV Clindamycin to be stopped on 01/25/18 and transitioning to oral Augmentin and oral clindamycin -Leukocytosis is downtrending but still very elevated at 15,000 -will like to see further resolution in WBC and facial/neck swelling before committing to oral antibiotic only for discharge Renal function Patient's BUN and creatinine increased which could be from Vancomycin and Ketoralac for pain control Ketoralac held and Vancomycin stopped On Iv fluids, Monitor renal function labs Pain Control Tylenol IV 1000 mg q8hrs for pain or fever instead of Ketorolac Would try to avoid narcotics given heroin abuse history Heroin use in recent past -has poor venous access and required a central line to be placed in the ER as IV and blood draws could not be done -Monitor for opioid withdrawal Hepatitis C antibody positive, other hepatitis labs pending Tobacco use -Nicotine patch, smoking cessation DVT ppx: SCD Vital Signs: Date Time Temp Pulse Resp B/P (MAP) Pulse Ox O2 Delivery O2 Flow Rate FiO2 01/25/18 08:00 Room Air 01/25/18 07:08 37.2 82 18 136/71 (92) 99 01/25/18 00:00 Room Air 01/24/18 22:46 37.4 90 18 113/68 (83) 98 Room Air 01/24/18 16:09 37.2 81 18 131/71 (91) 100 Room Air 01/24/18 16:00 Room Air Lab Results: Results Past 24 Hours Test 01/25/18 05:33 Range/Units White Blood Count 15.23 4.8-10.8 K/uL Red Blood Count 4.00 4.7-6.1 M/uL Hemoglobin 12.1 14.0-18.0 g/dL Hematocrit 34.2 42-52 % Mean Corpuscular Volume 85.5 80-100 fL Mean Corpuscular Hemoglobin 30.3 25-34 pg Mean Corpuscular Hemoglobin Concent 35.4 32-36 g/dl Platelet Count 225 130-400 K/uL Mean Platelet Volume 8.4 7.4-10.4 fL Neutrophils (%) (Auto) 80.0 % Lymphocytes (%) (Auto) 9.6 % Monocytes (%) (Auto) 8.2 % Eosinophils (%) (Auto) 1.2 % Basophils (%) (Auto) 0.1 % Neutrophils # (Auto) 12.20 1.4-6.5 K/uL Lymphocytes # (Auto) 1.46 1.2-3.4 K/uL Monocytes # (Auto) 1.25 0.11-0.59 K/uL Eosinophils # (Auto) 0.18 0-0.5 K/uL Basophils # (Auto) 0.01 0-0.2 K/uL RDW Standard Deviation 41.9 36.4-46.3 fL RDW Coefficient of Variation 13.5 11.5-14.5 % Immature Granulocyte % (Auto) 0.9 % Immature Granulocyte # (Auto) 0.13 0.00-0.02 K/uL Sodium Level 139 136-145 mmol/L Potassium Level 3.4 3.5-5.1 mmol/L Chloride Level 109 98-107 mmol/L Carbon Dioxide Level 23 21-32 mmol/L Anion Gap 7.0 3-11 mmol/L Blood Urea Nitrogen 7 7-18 mg/dl Creatinine 1.31 0.60-1.40 mg/dl Est Creatinine Clear Calc Drug Dose 87.9 ml/min Estimated GFR () 85.3 Estimated GFR (Non- 73.6 BUN/Creatinine Ratio 5.3 10-20 Random Glucose 99 70-99 mg/dl Calcium Level 7.9 8.5-10.1 mg/dl Total Bilirubin 0.5 0.2-1 mg/dl Aspartate Amino Transf (AST/SGOT) 16 15-37 U/L Alanine Aminotransferase (ALT/SGPT) 45 12-78 U/L Alkaline Phosphatase 77 45-117 U/L Total Protein 6.1 6.4-8.2 gm/dl Albumin 2.2 3.4-5.0 gm/dl Globulin 3.9 2.5-4.0 gm/dl Albumin/Globulin Ratio 0.6 0.9-2
[2018-01-25] MEDS: CLINDAMYCIN HCL 150 MG CAP PO SCH ×3 (13:00→21:06)
--- NOTE | 2018-01-25 13:34 | Progress Note ---
Progress Note Date of Service Jan 25, 2018. Progress Note Feeling better No fevers overnight WBC's slowly improving, now at 15 Clinically, his swelling and erythema are improving, still with purulent drainage from the laceration site. Wound care is much better. Cx - Strep and Staph - no abx resistance A/P - I agree with the transition to PO abx If no clinical worsening over night then D/C home with outpatient follow up. My office # is [phone] - he can call to schedule a follow up visit toward the end of this week.
[2018-01-25 15:37] VITALS: BP 141/82; PULSE 88; TEMP 37.1; O2SAT 100
[2018-01-25] MEDS ORDERED: VANCOMYCIN TROUGH ONE (17:30)
[2018-01-25 22:05] VITALS: BP 157/84; PULSE 86; TEMP 37.1; O2SAT 100
[2018-01-26] VITALS (8 sets, daily range): BP systolic 130–166; BP diastolic 75–82; PULSE 79–93; TEMP 37.3; O2SAT 96–99
[2018-01-26] MEDS: SODIUM CHLORIDE 0.9% 1000ML 1,000 ML IV SCH ×2 (04:17→07:40)
[2018-01-26 05:19] LABS: HEMATOCRIT 36.4 % (42-52); HEMOGLOBIN 12.7 g/dL (14.0-18.0); MEAN CELL VOLUME 86.1 fL (80-100); MEAN CORPUSCULAR HGB CONC 34.9 g/dl (32-36); MEAN PLATELET VOLUME 8.5 fL (7.4-10.4); PLATELET COUNT 270 K/uL (130-400); RED CELL DISTRIBUTION WIDTH CV 13.6 % (11.5-14.5); WHITE BLOOD COUNT 13.02 K/uL (4.8-10.8)
[2018-01-26 05:36] LABS: CREATININE 1.46 mg/dl (0.60-1.40)
[2018-01-26] MEDS: AMOXICILLIN/CLAVULANATE TAB 875 MG TAB PO SCH ×2 (07:40→15:56)
[2018-01-26] MEDS: MUPIROCIN 2% OINT 22 GM TUBE EXT SCH ×2 (07:40→12:21)
[2018-01-26] MEDS: NICOTINE 7 MG/24 HR TDSY TD SCH (07:40)
[2018-01-26] MEDS: CLINDAMYCIN HCL 150 MG CAP PO SCH ×3 (07:40→15:57)
[2018-01-26 09:43] LABS: HEPATITIS C VIRAL RNA(LOG) PCR 5.63 LOG IU/ML (<1.18)
[2018-01-26] MEDS ORDERED: POTASSIUM CHLORIDE 20 MEQ TABCR PO STA (11:28)
[2018-01-26 12:01] LABS: CALCIUM 8.4 mg/dl (8.5-10.1); CREATININE 1.45 mg/dl (0.60-1.40); POTASSIUM 3.7 mmol/L (3.5-5.1)
--- NOTE | 2018-01-26 12:13 | Progress Note ---
Internal Med Progress Note Date of Service: Jan 26, 2018. Provider Documentation: SUBJECTIVE: Patient awake and alert and verbal. OBJECTIVE: General Appearance: no acute distress Head: normocephalic Eyes: EOMI ENT: hearing grossly normal, left facial cellulitis, with edema and erythema to the left neck and left ear and left eyelid with some resolution of the swelling in terms of depth of swelling from admission, Neck: supple, no JVD, no carotid bruits, trachea midline, left neck swelling/ tenderness resolving Respiratory/Chest: chest non-tender, lungs clear, normal breath sounds, no respiratory distress, no accessory muscle use Cardiovascular: regular rate, rhythm, no edema, no gallop, no JVD, no murmur Abdomen/GI: normal bowel sounds, non tender, soft, no organomegaly Extremities/Musculoskelatal: normal inspection, no calf tenderness, no pedal edema; right femoral area with central line Neurologic/Psych: alert and oriented x 3 ASSESSMENT & PLAN: Hospital Course and Discharge Instructions FACIAL CELLULITIS: -no abscess per imaging -initially given unasyn and vanco in the ER -now on vancomycin and zosyn and clindamycin -MRSA surveillance screen negative -blood culture from 01/22/18 no growth -initial 01/22/18 wound culture as GROUP A BETA STREP -patient seen by oral-facial surgeon Dr. Andrew Purvis as inpatient and on 01/23 a deeper wound culture was obtained with wound culture as GROUP A BETA STREP -The GROUP A BETA STREP is sensitive to beta lactam and clindamycin. IV vancomycin and IV Zosyn and IV Clindamycin to be stopped on 01/25/18 and transitioning to oral Augmentin and oral clindamycin -Leukocytosis improving as White blood cells downtrending -patient to received Augmentin and Clindamycin prescriptions on discharge -patient should call [phone] to schedule an a follow up visit with Dr. Andrew Purvis of [facility] toward the end of this week -patient should follow up with primary care doctor and have follow up CBC to check for leukocytosis Kidney function Patient's BUN and creatinine increased from baseline, acute kidney injury, likely from recent antibiotics such as Vancomycin (but Vancomycin levels in the serum has not been elevated), and from Ketoralac for pain control Patient has been receiving IV fluids in the hospital Expect the renal function to improve as patient further removed from the days given Vancomycin and Ketorolac and Patient encouraged to stay hydrated by drinking water Patient should follow up with primary care doctor and have follow up renal labs Pain Control Patient should avoid pain medication products with NSAIDs such as Aleve, Motrin (Ibuprofen), or Toradol (Ketoralac) for pain control as these products can cause further worsening of kidney function Heroin use in recent past -central line of the right femoral placed in the hospital for IV access and blood draws to be removed upon discharge -patient is counseled to seek counseling on drug use and follow up with primary care doctor Hepatitis C antibody positive, other hepatitis labs pending -Patient's primary care doctor to call [facility] for release of medical records of hepatitis labs ( ) Tobacco use -patient is counseled to seek counseling on smoking cessation, discharge with nicotine patch prescription Vital Signs: Date Time Temp Pulse Resp B/P (MAP) Pulse Ox O2 Delivery O2 Flow Rate FiO2 01/26/18 08:00 Room Air 01/26/18 07:51 37.3 79 16 141/75 (97) 96 Room Air 01/26/18 00:00 Room Air 01/25/18 22:05 37.1 86 18 157/84 (108) 100 Room Air 01/25/18 16:30 Room Air 01/25/18 15:37 37.1 88 20 141/82 (101) 100 Room Air Lab Results: Results Past 24 Hours Test 01/26/18 05:02 01/26/18 11:29 Range/Units White Blood Count 13.02 4.8-10.8 K/uL Red Blood Count 4.23 4.7-6.1 M/uL Hemoglobin 12.7 14.0-18.0 g/dL Hematocrit 36.4 42-52 % Mean Corpuscular Volume 86.1 80-100 fL Mean Corpuscular Hemoglobin 30.0 25-34 pg Mean Corpuscular Hemoglobin Concent 34.9 32-36 g/dl RDW Standard Deviation 43.0 36.4-46.3 fL RDW Coefficient of Variation 13.6 11.5-14.5 % Platelet Count 270 130-400 K/uL Mean Platelet Volume 8.5 7.4-10.4 fL Potassium Level 3.6 3.7 3.5-5.1 mmol/L Creatinine 1.46 1.45 0.60-1.40 mg/dl Est Creatinine Clear Calc Drug Dose 78.9 79.4 ml/min Estimated GFR () 74.8 75.4 Estimated GFR (Non- 64.5 65.1 Sodium Level 141 136-145 mmol/L Chloride Level 108 98-107 mmol/L Carbon Dioxide Level 27 21-32 mmol/L Anion Gap 6.0 3-11 mmol/L Blood Urea Nitrogen 8 7-18 mg/dl BUN/Creatinine Ratio 5.4 10-20 Random Glucose 91 70-99 mg/dl Calcium Level 8.4 8.5-10.1 mg/dl Random Vancomycin Level 4.1 mcg/ml
[2018-01-26] MEDS ORDERED: CLC150 PO (12:31)
[2018-01-26] MEDS ORDERED: NICO7DIS7 TD (12:31)
[2018-01-26] MEDS ORDERED: AMOX1TAB43 PO (12:31)
--- NOTE | 2018-01-26 12:40 | Discharge Instructions ---
Discharge Instructions Date of Service Jan 26, 2018. Admission Reason for Admission: Facial Cellulitis Discharge Discharge Diagnosis / Problem: left facial cellulitis, acute kidney injury, hepatitis C positve Discharge Goals Goal(s): Improve disease control Activity Recommendations Activity Limitations: per Instructions/Follow-up section Shower/Bathe: no limitations . Instructions / Follow-Up Instructions / Follow-Up Hospital Course and Discharge Instructions FACIAL CELLULITIS: -no abscess per imaging -initially given unasyn and vanco in the ER -now on vancomycin and zosyn and clindamycin -MRSA surveillance screen negative -blood culture from 01/22/18 no growth -initial 01/22/18 wound culture as GROUP A BETA STREP -patient seen by oral-facial surgeon Dr. Andrew Purvis as inpatient and on 01/23 a deeper wound culture was obtained with wound culture as GROUP A BETA STREP -The GROUP A BETA STREP is sensitive to beta lactam and clindamycin. IV vancomycin and IV Zosyn and IV Clindamycin to be stopped on 01/25/18 and transitioning to oral Augmentin and oral clindamycin -Leukocytosis improving as White blood cells downtrending -patient to received Augmentin and Clindamycin prescriptions on discharge -patient should call [phone] to schedule an a follow up visit with Dr. nAdrew Purvis of [facility] toward the end of this week -patient should follow up with primary care doctor and have follow up CBC to check for leukocytosis Kidney function Patient's BUN and creatinine increased from baseline, acute kidney injury, likely from recent antibiotics such as Vancomycin (but Vancomycin levels in the serum has not been elevated), and from Ketoralac for pain control Patient has been receiving IV fluids in the hospital Expect the renal function to improve as patient further removed from the days given Vancomycin and Ketorolac and Patient encouraged to stay hydrated by drinking water Patient should follow up with primary care doctor and have follow up renal labs Pain Control Patient should avoid pain medication products with NSAIDs such as Aleve, Motrin (Ibuprofen), or Toradol (Ketoralac) for pain control as these products can cause further worsening of kidney function Heroin use in recent past -central line of the right femoral placed in the hospital for IV access and blood draws to be removed upon discharge -patient is counseled to seek counseling on drug use and follow up with primary care doctor Hepatitis C antibody positive, other hepatitis labs pending -Patient's primary care doctor to call for release of medical records of hepatitis labs ( ) Tobacco use -patient is counseled to seek counseling on smoking cessation, discharge with nicotine patch prescription Current Hospital Diet Patient's current hospital diet: Regular Diet Discharge Diet Recommended Diet: Regular Diet Pending Studies Studies pending at discharge: no Laboratory Results 01/26/18 05:02 01/26/18 11:29 Test 01/22/18 22:20 01/22/18 22:24 01/23/18 05:30 01/23/18 10:11 Total Creatine Kinase 97 U/L (39-308) Bedside Hemoglobin 12.9 g/dl (14.0-18.0) Bedside Hematocrit 38 % (42-52) Bedside Sodium 129 mEq/L (135-144) Bedside Potassium 3.8 mEq/L (3.3-5.0) Bedside Chloride 92 mEq/L (101-112) Bedside Total CO2 23 mEq/l (24-31) Bedside Blood Urea Nitrogen 6 mg/dl (7-18) Bedside Creatinine 0.7 mg/dl (0.6-1.3) Bedside Glucose (other) 126 mg/dl (70-99) Bedside Ionized Calcium (Loki) 1.09 mmol/l (1.12-1.32) Urine Color YELLOW Urine Appearance CLEAR (CLEAR) Urine pH 6.5 (4.5-7.5) Urine Specific Norman 1.010 (1.000-1.030) Urine Protein NEG (NEG) Urine Glucose (UA) NEG (NEG) Urine Ketones NEG (NEG) Urine Occult Blood NEG (NEG) Urine Nitrite NEG (NEG) Urine Bilirubin NEG (NEG) Urine Urobilinogen NEG (NEG) Urine Leukocyte Esterase NEG (NEG) Urine Opiates Screen NEG (NEG) Urine Methadone, Qualitative NEG (NEG) Urine Barbiturates NEG (NEG) Urine Phencyclidine (PCP) Level NEG (NEG) Ur Amphetamine/Methamphetamine NEG (NEG) MDMA (Ecstasy) Screen NEG (NEG) Urine Benzodiazepines Screen NEG (NEG) Urine Cocaine Metabolite NEG (NEG) Urine Marijuana (THC) NEG (NEG) Hepatitis C Antibody PRELIM POS (NEG) Test 01/23/18 10:31 01/24/18 12:08 01/25/18 05:33 01/26/18 05:02 Prothrombin Time 10.3 SECONDS (9.0-12.0) Prothromb Time International Ratio 1.0 (0.9-1.1) Activated Partial Thromboplast Time 31.4 SECONDS (21.0-31.0) Partial Thromboplastin Ratio 1.2 Vancomycin Level Trough 13.4 mcg/ml (SEE COMMENT) Immature Granulocyte % (Auto) 0.9 % White Blood Count 15.23 K/uL (4.8-10.8) Red Blood Count 4.00 M/uL (4.7-6.1) 4.23 M/uL (4.7-6.1) Hemoglobin 12.1 g/dL (14.0-18.0) Hematocrit 34.2 % (42-52) Mean Corpuscular Volume 85.5 fL (80-100) 86.1 fL (80-100) Mean Corpuscular Hemoglobin 30.3 pg (25-34) 30.0 pg (25-34) Mean Corpuscular Hemoglobin Concent 35.4 g/dl (32-36) 34.9 g/dl (32-36) Platelet Count 225 K/uL (130-400) Mean Platelet Volume 8.4 fL (7.4-10.4) 8.5 fL (7.4-10.4) Neutrophils (%) (Auto) 80.0 % Lymphocytes (%) (Auto) 9.6 % Monocytes (%) (Auto) 8.2 % Eosinophils (%) (Auto) 1.2 % Basophils (%) (Auto) 0.1 % Neutrophils # (Auto) 12.20 K/uL (1.4-6.5) Lymphocytes # (Auto) 1.46 K/uL (1.2-3.4) Monocytes # (Auto) 1.25 K/uL (0.11-0.59) Eosinophils # (Auto) 0.18 K/uL (0-0.5) Basophils # (Auto) 0.01 K/uL (0-0.2) Immature Granulocyte # (Auto) 0.13 K/uL (0.00-0.02) Total Bilirubin 0.5 mg/dl (0.2-1) Aspartate Amino Transf (AST/SGOT) 16 U/L (15-37) Alanine Aminotransferase (ALT/SGPT) 45 U/L (12-78) Alkaline Phosphatase 77 U/L (45-117) Total Protein 6.1 gm/dl (6.4-8.2) Albumin 2.2 gm/dl (3.4-5.0) Globulin 3.9 gm/dl (2.5-4.0) Albumin/Globulin Ratio 0.6 (0.9-2) RDW Standard Deviation 43.0 fL (36.4-46.3) RDW Coefficient of Variation 13.6 % (11.5-14.5) Test 01/26/18 11:29 Anion Gap 6.0 mmol/L (3-11) Est Creatinine Clear Calc Drug Dose 79.4 ml/min Estimated GFR () 75.4 Estimated GFR (Non- 65.1 BUN/Creatinine Ratio 5.4 (10-20) Calcium Level 8.4 mg/dl (8.5-10.1) Random Vancomycin Level 4.1 mcg/ml Date/Time Source Procedure Growth Status 01/22/18 22:20 Blood Blood Culture - Preliminary NO GROWTH TO DATE. Resulted 01/23/18 04:15 Nasal MRSA DNA Surveillance Screen - Final Specimen Negative for MRSA by DNA Probe Complete 01/23/18 17:30 Cellulitis Face Gram Stain - Final Resulted 01/23/18 17:30 Bacterial Culture - Preliminary Group A Beta Strep Resulted Medical Emergencies . Who to Call and When: Medical Emergencies: If at any time you feel your situation is an emergency, please call 911 immediately. . Non-Emergent Contact Non-Emergency issues call your: Primary Care Provider, Surgeon (oral facial doctor) Call Non-Emergent contact if: you have a fever, wound has increased redness, wound has increased pain, you have any medication questions . . "Provider Documentation" section prepared by Elan Rubalcava. . VTE Core Measure Inpt VTE Proph given/why not?: Enoxaparin (Lovenox)SQ
[2018-01-28 08:48] LABS: HEPATITIS C VIRAL RNA(LOG) PCR 5.79 LOG IU/ML (<1.18)
[2018-01-28 12:32] LABS: HEPATITIS C RNA TMA QUAL Detected
--- NOTE | 2018-02-02 16:41 | Discharge Summary ---
Discharge Summary Date of Service Feb 02, 2018. Discharge Summary Admission Date: Jan 23, 2018 at 02:11 Discharge Date: Jan 26, 2018 Discharge Disposition: Home Principal Diagnosis: left facial cellulitis, acute kidney injury, hepatitis C positve Medication Reconciliation New Medications: Amoxicillin & Pot Clavulanate (Amoxicillin/Clavulanate P) 1 Tab Tab 875 MG PO BIDM for 7 Days, #14 TAB Clindamycin HCl (Clindamycin HCl) 150 Mg Cap 300 MG PO QID for 7 Days, #56 CAP Nicotine (Nicoderm Cq 7 Mg Patch) 7 Mg/24 Hr Dis 1 PATCH TD QAM for 30 Days, #30 Continued Medications: Acetaminophen (Tylenol) 500 Mg Tab 2492-5124 MG PO DIRECTED PRN for Pain, TAB Discontinued Medications: Ibuprofen Tab (Advil) 200 Mg Tab 600-800 MG PO Q4H PRN for Pain, TAB Admission Information HPI (per Admitting provider): Patient is a 27 yo male who presented to the ER today for complaints of left sided facial swelling, pain, erythema, and drainage that have been worsening over the course of the day. The patient states he fell asleep while sitting up on the toilet and fell forward and hit his face on a trash can on Friday. He noticed an open wound and proceeded to use superglue to close the wound himself so that he would be permitted to work. He woke up morning with the above symptoms. His girlfriend then brought the patient to the hospital for further evaluation. The patient does report a history of IV drug abuse and reports last using heroin a couple of days ago. The patient reports associated pain, erythema, chills, rigors, and difficulty eating/drinking or speaking. He reports left sided jaw, ear, and neck pain as well. No prior history of facial cellulitis. No additional wounds noted. Physical Exam (per Admitting): General Appearance: WD/WN, no apparent distress, + mild distress Head: normocephalic, atraumatic Eyes: PERRL, EOMI, sclerae normal (conjunctivae clear) ENT: hearing grossly normal, + trismus, + pertinent finding (left facial cellulitis, with edema and erythema to the neck and ear and left eyelid) Neck: supple, no JVD, no carotid bruits, trachea midline, + pertinent finding (tenderness on left neck) Respiratory/Chest: chest non-tender, lungs clear, normal breath sounds, no respiratory distress, no accessory muscle use Cardiovascular: regular rate, rhythm, no edema, no gallop, no JVD, no murmur Abdomen/GI: normal bowel sounds, non tender, soft, no organomegaly Back: no CVA tenderness Extremities/Musculoskelatal: normal inspection, no calf tenderness, no pedal edema Neurologic/Psych: no motor/sensory deficits, alert, normal mood/affect, oriented x 3 Skin: normal color, warm/dry, no rash Hospital Course Hospital Course and Discharge Instructions FACIAL CELLULITIS: -no abscess per imaging -initially given unasyn and vanco in the ER -now on vancomycin and zosyn and clindamycin -MRSA surveillance screen negative -blood culture from 01/22/18 no growth -initial 01/22/18 wound culture as GROUP A BETA STREP -patient seen by oral-facial surgeon Dr. Andrew Purvis as inpatient and on 01/23 a deeper wound culture was obtained with wound culture as GROUP A BETA STREP -The GROUP A BETA STREP is sensitive to beta lactam and clindamycin. IV vancomycin and IV Zosyn and IV Clindamycin to be stopped on 01/25/18 and transitioning to oral Augmentin and oral clindamycin -Leukocytosis improving as White blood cells downtrending -patient to received Augmentin and Clindamycin prescriptions on discharge -patient should call [phone] to schedule an a follow up visit with Dr. Andrew Purvis of [facility] toward the end of this week -patient should follow up with primary care doctor and have follow up CBC to check for leukocytosis Kidney function Patient's BUN and creatinine increased from baseline, acute kidney injury, likely from recent antibiotics such as Vancomycin (but Vancomycin levels in the serum has not been elevated), and from Ketoralac for pain control Patient has been receiving IV fluids in the hospital Expect the renal function to improve as patient further removed from the days given Vancomycin and Ketorolac and Patient encouraged to stay hydrated by drinking water Patient should follow up with primary care doctor and have follow up renal labs Pain Control Patient should avoid pain medication products with NSAIDs such as Aleve, Motrin (Ibuprofen), or Toradol (Ketoralac) for pain control as these products can cause further worsening of kidney function Heroin use in recent past -central line of the right femoral placed in the hospital for IV access and blood draws to be removed upon discharge -patient is counseled to seek counseling on drug use and follow up with primary care doctor Hepatitis C antibody positive, other hepatitis labs pending -Patient's primary care doctor to call [facility] for release of medical records of hepatitis labs ( ) Tobacco use -patient is counseled to seek counseling on smoking cessation, discharge with nicotine patch prescription Total time spent on discharge = This includes examination of the patient, discharge planning, medication reconciliation, and communication with other providers. Discharge Instructions see above
== END 2018-01-26 16:59 | disposition home or self-care (01) | DRG 603 ==
LOC: C.EDB 20:05 → C.MS2W 01-23 02:11 → ENRESERV 01-23 02:44
PROVIDERS: ADMIT Internal Medicine; ATTEND Hospitalist
PROC: 06HM33Z Insertion of Infusion Device into Right Femoral Vein, Percutaneous Approach (ICD-10-PCS; principal; 2018-01-23)
DX: L03.211 Cellulitis of face (principal); N17.9 Acute kidney failure, unspecified; T39.8X5A Adverse effect of other nonopioid analgesics and antipyretics, not elsewhere classified, initial encounter; T36.8X5A Adverse effect of other systemic antibiotics, initial encounter; B19.20 Unspecified viral hepatitis C without hepatic coma; F17.210 Nicotine dependence, cigarettes, uncomplicated; F11.10 Opioid abuse, uncomplicated; B95.1 Streptococcus, group B, as the cause of diseases classified elsewhere; Y92.009 Unspecified place in unspecified non-institutional (private) residence as the place of occurrence of the external cause; W18.12XA Fall from or off toilet with subsequent striking against object, initial encounter; Y92.239 Unspecified place in hospital as the place of occurrence of the external cause